=== PATIENT | male | born 1995 | race Caucasian/White ===

== ENCOUNTER 2017-01-15 16:53 | Emergency (ER) | payer SELFPAY ==
[2017-01-15 20:10] LABS: AMPHETAMINE POS (NEG); BARBITURATES NEG (NEG); BENZODIAZEPINES NEG (NEG); COCAINE NEG (NEG); MARIJUANA POS (NEG); OPIATES NEG (NEG); TRICYCLIC ANTIDEPRESSANTS NEG (NEG); U METHADONE NEG (NEG)
== END 2017-01-15 21:27 ==
LOC: SED 16:53
PROVIDERS: Emergency Medicine
DX: R45.851 Suicidal ideations (principal); Z91.041 Radiographic dye allergy status
CPT/HCPCS: 80307; 96372; 99285; J3486

== ENCOUNTER 2017-01-15 18:00 | Inpatient (IN) | payer SELFPAY ==
--- NOTE | ~2017-01-15 | PA ---
Unit #: [id number] #: [id number] Patient: BETH HOLLINGSWORTH [id number] [facility] [address] [place] [address] [id number] I MR#: [id number] NAME: BETH HOLLINGSWORTH ROOM: 12 Age: 21 Sex: M Admission Date: 01/15/2017 : 1995 Date of Assessment: 01/16/2017 Attending Physician: Stefano Gamboa M.D. Admitting Physician: Stefano Gamboa M.D. Primary Care Physician: Primary Care Physician No PSYCHIATRIC ASSESSMENT IDENTIFYING INFORMATION The patient is a 21-year-old white male, admitted to the [address] [place] [address] unit in transfer from [facility], where he had presented with increasing paranoia related to abuse of methamphetamine. CHIEF COMPLAINT "I just wanted to find out who I'm." INFORMANTS The patient, the patient's reliability is fair. HISTORY OF PRESENT ILLNESS The patient is a 21-year-old white male with no prior psychiatric history. He is admitted after he presented to [facility] yesterday reporting increasing delusional thinking of a paranoid-type fearful that someone had stolen his identity from the government. The patient admits that he last used methamphetamine approximately 4 days ago. He also admits to frequent use of cannabis. The patient is currently denying any psychotic symptoms, and is pleasant and cooperative. 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 The patient denies suicidal or homicidal. He denies prior suicide attempts or gestures. PAST PSYCHIATRIC HISTORY None. PAST MEDICAL HISTORY Noncontributory. MEDICATIONS None. ALLERGIES Lidocaine, iodine, and IV dye. FAMILY HISTORY Noncontributory. SOCIAL HISTORY The patient lives with his father. He is employed as a sr technical sales consultant. He reports substance use as noted previously, and is a smoker. MENTAL STATUS EXAMINATION Unit #: [id number] #: [id number] Patient: BETH HOLLINGSWORTH At this time reveals the patient to be a well-developed, well-nourished white male, appearing his stated age. He is in no apparent physical distress at the time of examination. He is awake, alert, and oriented in all spheres. His mood is euthymic. His affect full range. Speech is generally well coherent. There are no gross deficits or cognition in memory or cognition noted. General intelligence is judged to be in the average range based on fund of knowledge. The patient is cooperative throughout the interview. He is currently denying suicidal, homicidal ideation, or psychotic features. His judgment and insight appear to be intact. ASSETS Motivation for change. LIABILITIES Lack of resources. 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 TREATMENT PLAN The patient will be discharged today with referrals for community mental health and chemical dependency treatment resources. PROGNOSIS Considered fair. Dictated by... Stefano Gamboa M.D. [place]/jefry TD: 01/16/2017 13:47 JOB #: [id number] PSYCHIATRIC ASSESSMENT Page 1 of 1 X Stefano Gamboa MD X PSYCHIATRIC ASSESSMENT
--- NOTE | ~2017-01-15 | HP ---
Unit #: [id number] #: [id number] Patient: BETH HOLLINGSWORTH [id number] [place] [address] [id number] I MR#: [id number] NAME: BETH HOLLINGSWORTH ROOM: 12 Age: 21 Sex: M Admission Date: 01/15/2017 : 1995 Attending Physician: Stefano Gamboa M.D. Admitting Physician: Stefano Gamboa M.D. Primary Care Physician: Primary Care Physician No HISTORY AND PHYSICAL HISTORY OF PRESENT ILLNESS Beth is a 21-year-old male admitted to [address] [place] [address] on 10/14/2016 for paranoia and psychosis. PAST MEDICAL HISTORY None. PAST SURGICAL HISTORY None. SOCIAL HISTORY He smokes one pack of cigarettes daily and denies alcohol or illegal drug use. He is currently single and living with his father. FAMILY HISTORY Noncontributory. REVIEW OF SYSTEMS CONSTITUTIONAL: No fever or chills. HEENT: Denies any sore throat, ear pain or runny nose. CARDIOVASCULAR: Denies chest pain, irregular heart rhythm or palpitations. CHEST: Denies shortness of breath or cough. No hemoptysis. GASTROINTESTINAL: Denies nausea, vomiting, diarrhea or chronic constipation. ENDOCRINE: Denies history of increased thirst or urination. No recent significant weight loss or gain. GENITOURINARY: Denies dysuria, frequency, or hematuria. SKIN: Denies any rashes. HEMATOLOGIC: Denies history of increased bleeding or bruising. MUSCULOSKELETAL: Denies any hot, swollen joints. No generalized muscle pain. NEUROLOGIC: Denies problems with vision or speech. No frequent, severe headaches. No numbness, tingling or weakness in any extremities. Denies loss of bladder or bowel control. CURRENT MEDICATIONS None. ALLERGIES Lidocaine and iodine and IV dye. Unit #: [id number] #: [id number] Patient: BETH HOLLINGSWORTH PHYSICAL EXAMINATION GENERAL: Alert, oriented, in no acute distress. VITAL SIGNS: Blood pressure 106/81, heart rate 105, respirations 18, temperature 97.8. HEIGHT: 6 feet WEIGHT: 140 pounds. SKIN: Warm and dry without rash or lesion. HEENT: Normocephalic. TMs not viewed. Oral and nasal passages clear. Conjunctivae clear. PERRLA. EOMs intact. NECK: Supple without lymphadenopathy or thyromegaly. HEART: Regular rate and rhythm without murmur. LUNGS: Clear. ABDOMEN: Soft, nontender, without masses or hepatosplenomegaly. : Not done. EXTREMITIES: No evidence of cyanosis, clubbing or edema. Moves all without focal deficit. NEUROLOGICAL: Grossly within normal limits. Cranial Nerves: II: Visual recinos are intact. III, IV AND : Extraocular movements are intact. Pupils are equal, round and reactive to light. V: Facial sensation is grossly normal. VII: Facial movements and expression are normal. VIII: Auditory acuity grossly intact. IX, X: Uvula is midline. Phonation is normal. XI: Patient shrugs shoulders and turns head normally. XII: Tongue protrudes in the midline. Sensory and Motor Function: Sensory and motor sensation is grossly normal. Motor: moves all extremities well. Coordination: Gait is normal. Deep Tendon Reflexes: Intact. IMPRESSION Psychiatric admission. RECOMMENDATIONS Psychiatric, per psychiatrist. MEDICAL: I see no contraindications to participating in facility's activities. MEDICAL PROGNOSIS Good. MEDICAL CONDITION Stable. Dictated by... Campbell Cho/alejandrina TD: 01/16/2017 22:59 JOB #: [id number] Unit #: [id number] #: [id number] Patient: BETH HOLLINGSWORTH HISTORY AND PHYSICAL Page 1 of 1 X CHASIDY MCLEOD APRN X HISTORY AND PHYSICAL
--- NOTE | ~2017-01-15 | DS ---
Unit #: [id number] #: [id number] Patient: BETH HOLLINGSWORTH [id number] [facility] [address] [place] [address] [id number] I MR#: [id number] NAME: BETH HOLLINGSWORTH ROOM: [facility] Age: 21 Sex: M Admission Date: 01/15/2017 : 1995 Discharge Date: 01/16/2017 Attending Physician: Stefano Gamboa M.D. Primary Care Physician: Primary Care Physician No DISCHARGE SUMMARY REASON FOR ADMISSION The patient is a 21-year-old white male, admitted to the [address] [place] [address] unit in transfer from [facility], where he had presented with a methamphetamine-induced psychosis. HOSPITAL COURSE The patient was admitted to the [address] [place] [address] unit and placed on suicide precautions. Zydis 10 mg q.8 hours was initiated, but it was not necessary during the patient's brief stay in the hospital. By 01/16/2017, the patient's psychotic symptoms had resolved and he requested discharge citing a need to return to work. He was agreeable with plan for followup through the auspices of [facility] mental health resources and as per his request, discharge was ordered. 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 DISPOSITION ON DISCHARGE No psychotropic or other medications were ordered at the time of discharge. FOLLOWUP Followup will take place through the auspices of [facility]. PROGNOSIS The patient's prognosis is considered fair. Dictated by... Stefano Gamboa M.D. CB/jordenl TD: 01/16/2017 16:38 JOB #: [id number] Unit #: [id number] #: [id number] Patient: BETH HOLLINGSWORTH DISCHARGE SUMMARY Page 1 of 1 X Stefano Gamboa MD X DISCHARGE SUMMARY
== END 2017-01-16 13:57 | disposition home or self-care (01) | DRG 897 ==
LOC: P1S 21:41
DX: F15.150 Other stimulant abuse with stimulant-induced psychotic disorder with delusions (principal); F15.129 Other stimulant abuse with intoxication, unspecified